=== PATIENT | male | born 1945 | race Caucasian/White ===

== ENCOUNTER 2018-02-22 06:55 | Day surgery (SDC) | payer MEDICARE, OTHER ==
[~2018-02-22 06:55] MED LIST: CYCLOPENTOLATE 1% OPHTH DROPS 2 ML ONE; KETOROLAC 0.45% OPHTH DROPS ONE; MIDAZOLAM 2 MG/2 ML VIAL IVP ONE; PHENYLEPHRINE 2.5% OPHTH 2 ML DROPS ONE; PROPARACAINE 0.5% OPHTH DROPS 15 ML ONE
[2018-02-22] MEDS ORDERED: TRIAMCIN/MOXIFLOX OPHTHALMIC 0.6 ML VIAL IO ONE ×2 (07:06→08:21)
[2018-02-22] MEDS ORDERED: BSS/LIDOCAINE/EPINEPHRINE 1 ML SYRINGE ONE (07:06)
[2018-02-22] MEDS ORDERED: TIMOLOL 0.5% OPHTH DROPS ONE (07:06)
[2018-02-22] MEDS ORDERED: BRIMONIDINE 0.2% OPHTH DROPS 5 ML ONE (07:06)
[2018-02-22] MEDS ORDERED: VANCOMYCIN OPHTHALMI 8MG/0.8ML 8 MG/0.8 ML SYRINGE IO ONE ×2 (07:07→08:21)
[2018-02-22] MEDS ORDERED: KETOROLAC 0.45% OPHTH DROPS RIGHTEYE ONE (07:10)
[2018-02-22] MEDS ORDERED: PROPARACAINE 0.5% OPHTH DROPS 15 ML RIGHTEYE ONE (07:10)
[2018-02-22] MEDS ORDERED: CYCLOPENTOLATE 1% OPHTH DROPS 2 ML RIGHTEYE ONE (07:10)
[2018-02-22] MEDS ORDERED: PHENYLEPHRINE 2.5% OPHTH 2 ML DROPS RIGHTEYE ONE (07:10)
[2018-02-22] MEDS ORDERED: LACTATED RINGERS 500 ML IV ONE (07:19)
--- NOTE | 2018-02-22 07:41 | ANESTHESIA ---
Pre-Anesthesia VS, & Labs - Diagnosis R nuclear sclerotic cataract - Procedure Extraction R cataract, w IOL Vital Signs: Temp Pulse Resp BP Pulse Ox 36.1 C L 78 18 161/79 H 96 02/22/18 07:03 02/22/18 07:03 02/22/18 07:03 02/22/18 07:03 02/22/18 07:03 Height 6 ft 3 in Weight (kg) 103.6 kg - NPO >8 hours Last Fluid Intake: sips@0600 Home Medications and Allergies Home Medications: Ambulatory Orders Lisinopril 20 mg PO DAILY 02/21/18 Lisinopril 20 mg PO DAILY 02/21/18 Allergies/Adverse Reactions: Allergies Allergy/AdvReac Type Severity Reaction Status Date / Time isoniazid AdvReac Mild Unknown Verified 02/21/18 13:03 Anes History & Medical History - Anesthetic History Anesthesia Complications: reports: No previous complications Family history of Anesthesia Complications: Denies Family history of Malignant Hyperthermia: Denies - Medical History Cardiovascular: reports: Hypertension Pulmonary: reports: None Gastrointestinal: reports: None Urinary: reports: None Musculoskeletal: reports: None Endocrine/Autoimmune: reports: None Skin: reports: None Psychosocial: reports: Alcohol - Surgical History General: Colonoscopy Cardiothoracic: Other (VATs and Thoracotomy) Orthopedic: Knee replacement Exam General: Alert, Oriented x3, Cooperative Dental: WNL Mouth Openin Fingerbreadth Neck Mobility: Normal Mallampati classification: II Thyromental Distance: 4-6 cm Respiratory: Lungs clear, Normal breath sounds Cardiovascular: Regular rate Neurological: Normal speech Mental/Cognitive Status: Alert/Oriented X3 Plan Anesthesia Type: MAC Consent for Procedure(s) Verified and Reviewed: Yes Code Status: Attempt Resuscitation ASA classification: 2-Mild systemic disease Is this case an emergency?: No
[2018-02-22] MEDS ORDERED: BRIMONIDINE 0.2% OPHTH DROPS 5 ML OPTH ONE (08:17)
[2018-02-22] MEDS ORDERED: TIMOLOL 0.5% OPHTH DROPS OPTH ONE (08:18)
[2018-02-22] MEDS ORDERED: EPINEPHrine 1 MG/ML AMP IVP ONE (08:18)
[2018-02-22] MEDS ORDERED: CHONDR SULF/HYALURONATE SYRINGE IO ONE (08:18)
[2018-02-22] MEDS ORDERED: BSS/LIDOCAINE/EPINEPHRINE 1 ML SYRINGE IO ONE (08:19)
[2018-02-22 08:52] VITALS: BP 139/67
--- NOTE | 2018-02-22 10:13 | PROCEDURE REPORT ---
DATE OF SERVICE: 02/22/2018 Physician: Bruce Corado MD PREOPERATIVE DIAGNOSIS: Visually significant cataract, right eye. This was his first cataract surgery. POSTOPERATIVE DIAGNOSIS: Visually significant cataract, right eye. This was his first cataract surgery. NAME OF PROCEDURE: Phacoemulsification and posterior chamber intraocular lens implant, right eye. SURGEON: Bruce Corado ANESTHESIA: Monitored anesthesia care. COMPLICATIONS: None. OPERATIVE INDICATIONS: This is a 72-year-old man with progressive vision loss in the right eye due to 2 to 3+ nuclear sclerotic and 1+ cortical cataract. Best corrected visual acuity was 20/40 with glare to 20/400 in the right eye. Indications for surgery were overall decrease in vision, difficulty driving in low light or at night, difficulty with glare and bright light in any situation, and decreased acuity with firearms. He was consented at length concerning risks and benefits of cataract surgery, after which he expressed a desire to proceed with surgery. OPERATIVE PROCEDURE: The patient was taken to OR #3 and placed under monitored anesthesia care. A surgical timeout was conducted, confirming correct patient, correct procedure, and correct surgical site. He was given topical anesthesia and then prepped and draped in the usual sterile fashion. The eye was entered at the 12 and 9 o'clock positions. Intracameral Shugarcaine was injected into the anterior chamber, followed by Viscoat. A continuous-tear curvilinear capsulorrhexis was performed. The nucleus was hydrodissected and phacoemulsified. The cortex was evacuated using automated infusion and aspiration (I&A). Provisc was injected in the capsular bag and an 18.0 diopter intraocular lens inserted in the bag. Approximately 0.8 mL mixture of triamcinolone, moxifloxacin and vancomycin was injected subconjunctivally in the superior quadrant for infection and inflammation prophylaxis. I&A was used to evacuate the viscoelastic materials from the anterior chamber. The eye was inflated to physiologic pressure using balanced salt solution and found to be watertight. The patient was taken from the operating room in good condition and given postop instructions. TD: 02/22/2018 08:46 [facility]
== END 2018-02-22 06:56 | disposition home or self-care (01) ==
LOC: SDS 06:55
PROVIDERS: ATTEND Ophthalmology
PROC: 08RJ3JZ Replacement of Right Lens with Synthetic Substitute, Percutaneous Approach (ICD-10-PCS; principal; 2018-02-22 08:00)
DX: H25.11 Age-related nuclear cataract, right eye (principal)
CPT/HCPCS: 66984; A9270; J3490; V2632

== ENCOUNTER 2018-10-18 08:48 | Day surgery (SDC) | payer MEDICARE, OTHER ==
[~2018-10-18 08:48] MED LIST changes: -MIDAZOLAM 2 MG/2 ML VIAL IVP ONE
[2018-10-18] MEDS ORDERED: MIDAZOLAM 2 MG/2 ML VIAL IVP ONE (08:49)
[2018-10-18] MEDS ORDERED: fentaNYL 100 MCG/2 ML VIAL IVP ONE (08:49)
[2018-10-18] MEDS ORDERED: LACTATED RINGERS 500 ML IV ONE (09:24)
--- NOTE | 2018-10-18 09:24 | ANESTHESIA ---
Pre-Anesthesia VS, & Labs - Diagnosis Left traumatic cataract - Procedure Left phaco with IOL implant Vital Signs: Temp Pulse Resp BP Pulse Ox 36.6 C 72 12 148/83 H 95 10/18/18 09:19 10/18/18 09:19 10/18/18 09:19 10/18/18 09:19 10/18/18 09:19 Height 6 ft 3 in Weight (kg) 102 kg - NPO >8 hours - Lab Results Lab results reviewed: No Home Medications and Allergies Lisinopril 20 mg PO DAILY 02/21/18 Allergies/Adverse Reactions: Allergies Allergy/AdvReac Type Severity Reaction Status Date / Time isoniazid AdvReac Mild Unknown Verified 02/21/18 13:03 Anes History & Medical History - Anesthetic History Anesthesia Complications: reports: No previous complications Family history of Anesthesia Complications: Denies Family history of Malignant Hyperthermia: Denies - Medical History Cardiovascular: reports: Hypertension Pulmonary: reports: Other Gastrointestinal: reports: None Urinary: reports: None Neuro: reports: None Musculoskeletal: reports: None Endocrine/Autoimmune: reports: None Blood Disorders: reports: None Skin: reports: None Smoking Status: Former smoker Psychosocial: reports: No issues indicated - Surgical History General: Colonoscopy Eyes Ears Nose Throat (EENT): Cataracts Cardiothoracic: Other (VATs and Thoracotomy) Orthopedic: Knee replacement Exam General: Alert, Oriented x3, Cooperative Dental: WNL Mouth Opening: Greater than 4 Fingerbreadths Neck Mobility: Normal Mallampati classification: II Thyromental Distance: greater than 6 cm Respiratory: Lungs clear Cardiovascular: Regular rate Neurological: Normal speech Mental/Cognitive Status: Alert/Oriented X3, Normal for patient Cognitive Status: Within normal limits Plan Anesthesia Type: MAC Consent for Procedure(s) Verified and Reviewed: Yes Code Status: Attempt Resuscitation ASA classification: 2-Mild systemic disease Is this case an emergency?: No
[2018-10-18] MEDS ORDERED: PROPARACAINE 0.5% OPHTH DROPS 15 ML LEFTEYE ONE (09:25)
[2018-10-18] MEDS ORDERED: KETOROLAC 0.45% OPHTH DROPS LEFTEYE ONE (09:25)
[2018-10-18] MEDS ORDERED: CYCLOPENTOLATE 1% OPHTH DROPS 2 ML LEFTEYE ONE (09:25)
[2018-10-18] MEDS ORDERED: PHENYLEPHRINE 2.5% OPHTH 2 ML DROPS LEFTEYE ONE (09:26)
[2018-10-18] MEDS ORDERED: EPINEPHrine 1 MG/ML AMP IVP ONE (10:09)
[2018-10-18] MEDS ORDERED: BRIMONIDINE 0.2% OPHTH DROPS 5 ML OPTH ONE (10:09)
[2018-10-18] MEDS ORDERED: CHONDR SULF/HYALURONATE SYRINGE IO ONE (10:10)
[2018-10-18] MEDS ORDERED: BSS/LIDOCAINE/EPINEPHRINE 1 ML SYRINGE IO ONE (10:10)
[2018-10-18] MEDS ORDERED: TIMOLOL 0.5% OPHTH DROPS OPTH ONE (10:10)
[2018-10-18] MEDS ORDERED: VANCOMYCIN OPHTHALMI 8MG/0.8ML 8 MG/0.8 ML SYRINGE IO ONE ×2 (10:10→10:48)
[2018-10-18] MEDS ORDERED: TRIAMCIN/MOXIFLOX OPHTHALMIC 0.6 ML VIAL IO ONE ×3 (10:11→10:47)
[2018-10-18 10:30] VITALS: BP 132/71
[2018-10-18] MEDS ORDERED: EPINEPHrine 1 MG/ML AMP ONE (10:47)
[2018-10-18] MEDS ORDERED: BRIMONIDINE 0.2% OPHTH DROPS 5 ML ONE (10:47)
[2018-10-18] MEDS ORDERED: TIMOLOL 0.5% OPHTH DROPS ONE (10:47)
[2018-10-18] MEDS ORDERED: BSS/LIDOCAINE/EPINEPHRINE 1 ML SYRINGE ONE (10:48)
--- NOTE | 2018-10-18 10:58 | OPERATIVE REPORT ---
DATE OF SERVICE: 10/18/2018 Physician: Bruce Corado MD PREOPERATIVE DIAGNOSIS: Visually significant cataract, left eye. Cataract surgery was performed on the right eye on 02/22/2018. POSTOPERATIVE DIAGNOSIS: Visually significant cataract, left eye. Cataract surgery was performed on the right eye on 02/22/2018. PROCEDURE: Phacoemulsification with posterior chamber intraocular lens implant, left eye. SURGEON: Bruce Corado MD ANESTHESIA: Monitored anesthesia care. COMPLICATIONS: None. OPERATIVE INDICATIONS: This is a 72-year-old man with progressive vision loss in the left eye due to 3+ nuclear sclerotic, 1+ cortical and 1-2+ posterior subcapsular cataract. Best corrected visual acuity was 20/40, with glare to 20/400 in the left eye. Indications for surgery were overall decrease in vision, difficulty driving in low light or at night, difficulty with glare or bright lights in any situation, and decreased acuity with firearms. He was consented at length concerning risks and benefits of cataract surgery, after which he expressed a desire to proceed with surgery. OPERATIVE PROCEDURE: He patient was taken to OR #3 and placed under monitored anesthesia care. Surgical timeout was conducted confirming correct patient, correct procedure, and correct surgical site. He was given topical anesthesia, and prepped and draped in the usual sterile fashion. The eye was entered at the 6 and 3 o'clock positions. Intracameral Shugarcaine was injected into the anterior chamber, followed by Viscoat. A continuous-tear curvilinear capsulorrhexis was performed. The nucleus was hydrodissected and phacoemulsified. The cortex was evacuated using automated infusion and aspiration (I&A). Provisc was injected in the capsular bag and an 18.0 diopter intraocular lens was inserted into the bag. Approximately 0.8 mL of a mixture of triamcinolone, moxifloxacin and vancomycin was injected subconjunctivally in the superior quadrant for infection and inflammation prophylaxis. I&A was used to evacuate the viscoelastic materials. The eye was inflated to physiologic pressure using balanced salt solution and found to be watertight. The patient was taken from the operating room in good condition and given postoperative instructions. TD: 10/18/2018 10:29 [facility]
== END 2018-10-18 08:49 | disposition home or self-care (01) ==
LOC: SDS 08:48
PROVIDERS: ATTEND Ophthalmology
PROC: 08RK3JZ Replacement of Left Lens with Synthetic Substitute, Percutaneous Approach (ICD-10-PCS; principal; 2018-10-18 10:00)
DX: H26.1 Traumatic cataract (principal); I10 Essential (primary) hypertension
CPT/HCPCS: 66984; A9270; J3490; V2632